=== PATIENT | female | born 1990 ===

== ENCOUNTER 2020-01-15 06:00 | Day surgery (SDC) | payer OTHER ==
[~2020-01-15 06:00] MED LIST: CELEBREX100 MG PO; KEFLEX500 MG PO; PERCOCET 5/3251 TAB PO
== END 2020-01-15 10:33 | disposition home or self-care (01) ==
LOC: AMB-ENDOS 06:00
PROVIDERS: ATTEND Surgery
DX: D13.1 Benign neoplasm of stomach (principal); K44.9 Diaphragmatic hernia without obstruction or gangrene

== ENCOUNTER 2023-11-20 18:52 | Emergency (ER) | payer OTHER ==
[~2023-11-20] VITALS: Ht 160 cm; Wt 79.4 kg
[2023-11-20] MEDS ORDERED: ZOFRAN8 MG PO (20:14)
[2023-11-20] MEDS ORDERED: OXYBUTYNIN CHLO10 MG PO (20:14)
[2023-11-20] MEDS ORDERED: PRENA1 TRUE CO1 EACH PO (20:14)
[2023-11-20] MEDS ORDERED: THERAMINE CAPS1 EACH PO (20:15)
== END 2023-11-20 22:14 | disposition home or self-care (01) ==
LOC: ER 18:52
DX: O26.891 Other specified pregnancy related conditions, first trimester (principal); K60.2 Anal fissure, unspecified; K59.00 Constipation, unspecified; Z3A.09 9 weeks gestation of pregnancy; Z91.040 Latex allergy status

== ENCOUNTER 2023-12-14 11:56 | Outpatient (CLI) | payer OTHER ==
[~2023-12-14 11:56] MED LIST changes: +OXYBUTYNIN CHLO10 MG PO; +PRENA1 TRUE CO1 EACH PO; +THERAMINE CAPS1 EACH PO; +ZOFRAN8 MG PO
== END 2023-12-14 11:57 | disposition home or self-care (01) ==
LOC: PRENATAL 11:56
PROVIDERS: ATTEND Obstetrics & Gynecology Maternal & Fetal Medicine
DX: O36.80X0 Pregnancy with inconclusive fetal viability, not applicable or unspecified (principal); Z36.82 Encounter for antenatal screening for nuchal translucency; Z3A.12 12 weeks gestation of pregnancy

== ENCOUNTER 2024-02-08 12:36 | Outpatient (CLI) | payer OTHER | END 2024-02-08 12:37 | disposition home or self-care (01) | LOC: PRENATAL 12:36 | PROVIDERS: ATTEND Obstetrics & Gynecology Maternal & Fetal Medicine | DX: O35.3XX0 Maternal care for (suspected) damage to fetus from viral disease in mother, not applicable or unspecified (principal); O44.00 Complete placenta previa NOS or without hemorrhage, unspecified trimester; Z3A.20 20 weeks gestation of pregnancy ==

== ENCOUNTER 2024-04-04 14:24 | Outpatient (CLI) | payer OTHER | END 2024-04-04 14:30 | disposition home or self-care (01) | LOC: PRENATAL 14:24 | PROVIDERS: ATTEND Obstetrics & Gynecology Maternal & Fetal Medicine | DX: O44.00 Complete placenta previa NOS or without hemorrhage, unspecified trimester (principal); O26.849 Uterine size-date discrepancy, unspecified trimester ==

== ENCOUNTER 2024-05-16 15:04 | Outpatient (CLI) | payer OTHER | END 2024-05-16 15:05 | disposition home or self-care (01) | LOC: PRENATAL 15:04 | PROVIDERS: ATTEND Obstetrics & Gynecology Maternal & Fetal Medicine | DX: O26.849 Uterine size-date discrepancy, unspecified trimester (principal); O36.8199 Decreased fetal movements, unspecified trimester, other fetus; Z3A.34 34 weeks gestation of pregnancy ==

== ENCOUNTER 2024-06-02 08:55 | Inpatient (IN) | payer OTHER ==
[~2024-06-02] VITALS: Ht 160 cm; Wt 2.7 kg
[2024-06-02 08:25] VITALS: BP 139/95
[2024-06-02] MEDS ORDERED: RINGERS SOLUTION,LACTATED 1,000 ML IV SCH (09:30)
[2024-06-02 09:58] LABS: HEMATOCRIT 40.1 % (36.0-45.00); HEMOGLOBIN 13.5 g/dL (12.0-15.00); MEAN CELL VOLUME 82.4 fL (80.00-100.00); MEAN CORPUSCULAR HEMOGLOBIN 27.7 pg (27.00-32.0); MEAN CORPUSCULAR HGB CONC 33.6 g/dl (32.0-36.0); PLATELET COUNT 220 K/uL (150-450); RED BLOOD COUNT 4.86 M/uL (4.00-6.00)
[2024-06-02 09:59] LABS: URINE APPEARANCE Clear; URINE BILIRRUBIN Negative (NEGATIVE); URINE BLOOD Negative; URINE COLOR Yellow; URINE GLUCOSE Negative (NEGATIVE); URINE KETONE Negative (NEGATIVE); URINE LEUKOCYTE Trace; URINE NITRATE Negative; URINE PROTEIN Negative (NEGATIVE); URINE UROBILINOGEN 0.2 E.U./dl
[2024-06-02 10:02] LABS: URINE BACTERIA 601.9 uL (0.0-1933); URINE EPITHELIAL CELLS 57.9 uL (0.0-38.8); URINE WBC 35.6 uL (0.0-23.2)
[2024-06-02 10:35] LABS: ALBUMIN 2.6 gm/dL (3.4-5.0); BILIRUBIN TOTAL 0.28 mg/dL (0.3-1.2); CALCIUM 9.5 mg/dL (8.5-10.1); CREATININE SERUM 0.56 mg/dL (0.55-1.02); GFR 124.67; POTASSIUM 4.35 mEq/L (3.5-5.1); TOTAL PROTEIN 5.6 gm/dL (6.4-8.2)
[2024-06-02 10:45] LABS: INR 0.96; PARTIAL THROMBOPLASTIN TIME 27.3 SECONDS (22.0-34.0); PROTHROMBIN TIME 10.5 SECONDS (9.0-11.5)
[2024-06-02] MEDS ORDERED: MISOPROSTOL 25 MCG/4 ML GEL.W.APPL ONE ×2 (11:05→22:06)
[2024-06-02] MEDS ORDERED: MISOPROSTOL 25 MCG/4 ML GEL.W.APPL VAG ONE ×4 (11:15→22:30)
[2024-06-02 11:27] VITALS: BP 133/88
[2024-06-02 16:07] VITALS: BP 148/85
[2024-06-02 19:10] VITALS: BP 132/76
[2024-06-02] MEDS ORDERED: MEPERIDINE HCL/PF 50 MG/ML VIAL IV STA (20:58)
[2024-06-02] MEDS ORDERED: PROMETHAZINE HCL 25 MG/ML AMPUL IV STA (20:58)
[2024-06-02 21:10] VITALS: BP 146/95
[2024-06-02 23:25] VITALS: BP 119/69
[2024-06-03] MEDS ORDERED: MEPERIDINE HCL/PF 25 MG/ML VIAL IV ONE (01:30)
[2024-06-03] MEDS ORDERED: PROMETHAZINE HCL 25 MG/ML AMPUL IV ONE (01:30)
[2024-06-03] MEDS ORDERED: OXYTOCIN 20 UNITS/500ML RL PIGGYBAG IV ONE (02:38)
[2024-06-03 04:00] VITALS: BP 147/91
[2024-06-03 07:48] VITALS: BP 117/73
[2024-06-03] MEDS ORDERED: CEFAZOLIN SODIUM 1,000 MG VIAL IV ONE (08:30)
[2024-06-03] MEDS ORDERED: OXYTOCIN 10 UNITS/ML VIAL ONE ×2 (09:17→13:54)
[2024-06-03] MEDS ORDERED: ERYTHROMYCIN BASE OPHT 1GM EACH TUBE OP ONE (09:18)
[2024-06-03] MEDS ORDERED: MEPERIDINE HCL/PF 50 MG/ML VIAL IV PRN (11:45)
[2024-06-03] MEDS ORDERED: MORPHINE SULFATE 4 MG/ML VIAL IV ONE ×2 (12:00→12:30)
[2024-06-03] MEDS ORDERED: OXYTOCIN 1,000 ML IV SCH (12:15)
[2024-06-03] MEDS ORDERED: SIMETHICONE 125 MG CAPSULE PO SCH (13:00)
[2024-06-03] MEDS ORDERED: PROMETHAZINE HCL 25 MG/ML AMPUL IV SCH (13:00)
[2024-06-03 14:32] VITALS: BP 131/85
[2024-06-03 15:59] VITALS: BP 136/84
[2024-06-03 20:00] VITALS: BP 122/82
[2024-06-03 21:11] LABS: HEMATOCRIT 34.8 % (36.0-45.00); MEAN CELL VOLUME 81.5 fL (80.00-100.00); MEAN CORPUSCULAR HEMOGLOBIN 28.3 pg (27.00-32.0); MEAN CORPUSCULAR HGB CONC 34.7 g/dl (32.0-36.0); PLATELET COUNT 180 K/uL (150-450); RED BLOOD COUNT 4.26 M/uL (4.00-6.00); RED CELL DISTRIBUTION WIDTH 15.8 % (11.5-14.5)
[2024-06-04 01:37] VITALS: BP 131/87
[2024-06-04 08:49] VITALS: BP 133/81
[2024-06-04] MEDS ORDERED: DOCUSATE SODIUM 100MG CAP PO SCH (09:00)
[2024-06-04] MEDS ORDERED: PNV,CALCIUM 72/IRON/FOLIC ACID 1 TAB TABLET PO SCH (09:00)
[2024-06-04] MEDS ORDERED: OxyCODONE HCL/APAP UD (PERCOCET) PO PRN (09:00)
[2024-06-04 16:45] VITALS: BP 130/84
[2024-06-05 00:10] VITALS: BP 116/71
[2024-06-05 08:11] VITALS: BP 177/73
== END 2024-06-05 14:05 | disposition home or self-care (01) | DRG 788 ==
LOC: LDR 08:55 → OB/GYN 06-03 12:47
PROVIDERS: Obstetrics & Gynecology; ADMIT Student in an Organized Health Care Education/Training Program; ATTEND Student in an Organized Health Care Education/Training Program
PROC: 3E0P7VZ Introduction of Hormone into Female Reproductive, Via Natural or Artificial Opening (ICD-10-PCS; 2024-06-02)
PROC: 4A1HXCZ Monitoring of Products of Conception, Cardiac Rate, External Approach (ICD-10-PCS; 2024-06-02)
PROC: 3E033VJ Introduction of Other Hormone into Peripheral Vein, Percutaneous Approach (ICD-10-PCS; 2024-06-03)
PROC: 10D00Z1 Extraction of Products of Conception, Low, Open Approach (ICD-10-PCS; principal; 2024-06-03 09:00)
DX: O13.4 Gestational [pregnancy-induced] hypertension without significant proteinuria, complicating childbirth (principal); O62.1 Secondary uterine inertia; O24.02 Pre-existing type 1 diabetes mellitus, in childbirth; E10.9 Type 1 diabetes mellitus without complications; Z3A.37 37 weeks gestation of pregnancy; Z37.0 Single live birth; Z79.4 Long term (current) use of insulin